=== PATIENT | female | born 2000 | race Caucasian/White ===

== ENCOUNTER 2024-12-18 19:26 | Emergency (ER) | payer BC ==
[2024-12-18] MEDS: Sodium Chloride 0.9% 1,000 ML IV ONE (19:49)
[2024-12-18] MEDS: Sodium Chloride 0.9% 1,000 ML ONE (19:49)
[2024-12-18] MEDS: Ondansetron 4 MG/2 ML SDV ONE (19:49)
[2024-12-18] MEDS: Ondansetron 4 MG/2 ML SDV IVPUSH ONE ×2 (19:49→21:03)
[2024-12-18 20:03] LABS: BASOPHILS ABSOLUTE AUTO 0.01 10^3/uL (0.00-0.10); BASOPHILS PERCENT AUTO 0.1 % (0.0-1.0); EOSINOPHILS ABSOLUTE AUTO 0.08 10^3/uL (0.10-0.30); EOSINOPHILS PERCENT AUTO 0.8 % (1.0-3.0); HEMATOCRIT 43.3 % (37.0-47.0); HEMOGLOBIN 14.8 g/dL (12.0-16.0); IMMATURE GRAN ABSOLUTE AUTO 0.01 10^3/uL (0.00-0.04); IMMATURE GRAN PERCENT AUTO 0.1 % (0.0-0.4); LYMPHOCYTES ABSOLUTE AUTO 0.49 10^3/uL (1.00-4.00); LYMPHOCYTES PERCENT AUTO 5.1 % (20.0-40.0); MEAN CORPUSCULAR HEMOGLOBIN 30.4 pg (27.0-31.0); MEAN CORPUSCULAR HGB CONC 34.2 g/dL (32.0-36.0); MEAN CORPUSCULAR VOLUME 88.9 fL (82.0-92.0); MEAN PLATELET VOLUME 8.6 fL (7.4-10.4); MONOCYTES ABSOLUTE AUTO 0.53 10^3/uL (0.10-0.80); MONOCYTES PERCENT AUTO 5.5 % (2.0-8.0); NEUTROPHILS ABSOLUTE AUTO 8.43 10^3/uL (2.50-7.00); NEUTROPHILS PERCENT AUTO 88.4 % (50.0-70.0); PLATELET COUNT,PLT 300 10^3/uL (150-400); RED BLOOD CELL COUNT 4.87 10^6/uL (3.80-5.50); RED CELL DISTRIBUTION WIDTH 12.7 % (11.5-14.5); WHITE BLOOD CELL COUNT,WBC 9.55 10^3/uL (5.00-10.00)
[2024-12-18 20:09] LABS: ALANINE AMINOTRANSFERASE,ALT 117 U/L (14-63); ALBUMIN 3.82 g/dL (3.40-5.00); ALKALINE PHOSPHATASE 40 U/L (46-116); ANION GAP 13.9 mmol/L (5-15); ASPARTATE AMNIOTRANSFERASE,AST 43 U/L (15-37); BILIRUBIN TOTAL 0.8 mg/dL (0.2-1.0); BLOOD UREA NITROGEN,BUN 11 mg/dL (7-18); CALCIUM 8.9 mg/dL (8.7-10.3); CARBON DIOXIDE,CO2 24.6 mmol/L (21.0-32.0); CHLORIDE,CL 100 mmol/L (98-107); CREATININE 0.77 mg/dL (0.51-1.17); ESTIMATED GFR 110 mL/min (>=60); GLUCOSE RANDOM 119 mg/dL (70-140); POTASSIUM,K 3.5 mmol/L (3.5-5.1); PROTEIN TOTAL,TP 7.9 g/dL (6.4-8.2); SODIUM,NA 135 mmol/L (136-145)
[2024-12-18] MEDS: Ondansetron 4 MG Tab.DIS PO ONE (21:02)
[2024-12-18] MEDS: Ondansetron 4 MG Tab.DIS ONE (21:15)
== END 2024-12-18 21:17 | disposition home or self-care (01) ==
LOC: KA.ED 19:26
DX: E86.0 Dehydration (principal)
CPT/HCPCS: 36415; 80053; 85025; 87428-QW; 96361; 96374; 96376; 99284-25; A9270-GY; J2405; J7030